=== PATIENT | female | born 1995 | race Caucasian/White ===

== ENCOUNTER → 2017-05-24 | Outpatient (CLI) | payer MEDICAID | LOC: FIMAGING 16:34 | PROVIDERS: ATTEND Advanced Practice Midwife | DX: R10.2 Pelvic and perineal pain (principal); N83.201 Unspecified ovarian cyst, right side ==

== ENCOUNTER 2017-07-11 22:38 | Emergency (ER) | payer MEDICAID ==
[2017-07-11 22:52] VITALS: TEMP 98.4; O2SAT 96
[2017-07-11 23:09] LABS: COLOR YELLOW; LEUKOCYTE ESTERASE,URINE TRACE (NEGATIVE); NITRITE,URINE NEGATIVE (NEGATIVE)
[2017-07-11 23:14] LABS: BACTERIA 1+ /hpf (NONE SEEN); MUCUS TRACE /lpf (NONE-1+)
--- NOTE | 2017-07-11 23:49 | EDPHY ---
H & P Stated Complaint: splinter in left great toe, uti symptoms- flank/back pain Time Seen by Provider: 07/11/17 22:59 HPI/ROS: CHIEF COMPLAINT: back pain, splinter in toe HISTORY OF PRESENT ILLNESS: 21 year old female presents to the ED complaining of a mild low back ache x 1 week. Pt Reports this started after a hard work out. She denies urinary urgency or dysuria. Pt reports she always has urinary frequency. No hematuria. No abdominal pain, fevers, nausea or vomiting. No vaginal discharge. No saddle anesthesias or loss of control of her bowel or bladder. Pt reports she was treated 1 month for a urinary tract infection. She states this feels similar to a kidney infection she had couple years ago. Patient is sexually active, she denies pain with intercourse. Pain is worse with movement. Patient also complains of a splinter in her left great toe that she sustained while walking down the stairs barefoot today at her apartment complex. Tetanus is up-to-date. REVIEW OF SYSTEMS: A comprehensive 10 point review of systems is otherwise negative aside from elements mentioned in the history of present illness. Physical Exam Source: Patient Exam Limitations: No limitations - Personal History LMP (Females 10-55): 15-21 Days Ago Current Tetanus Diphtheria and Acellular Pertussis (TDAP): Yes - Medical/Surgical History Hx Asthma: Yes Hx Chronic Respiratory Disease: No Hx Diabetes: No Hx Cardiac Disease: No Hx Renal Disease: No Hx Cirrhosis: No Hx Alcoholism: No Hx HIV/AIDS: No Hx Splenectomy or Spleen Trauma: No Other PMH: hypothyroid, - Social History Smoking Status: Never smoked - Physical Exam Exam: Physical Exam Gen: Alert and Oriented, NAD HEENT: PERRL, moist mucous membranes NECK: no meningismus CV: regular rate and regular rhythm PULM: CTAB, no wheezes ABDOMEN: soft, mild suprapubic tenderness to palpation, BS present BACK: Mild bilateral paraspinal lumbar tenderness to palpation, no CVA tenderness NEURO: Neurologically grossly intact EXTREMITIES: normal appearing SKIN: no rash or break in skin on exposed skin PSYCH: answers questions appropriately. Constitutional: Initial Vital Signs Temperature (C) 36.9 C 07/11/17 22:48 Heart Rate 61 07/11/17 22:48 Respiratory Rate 18 07/11/17 22:48 Blood Pressure 125/67 H 07/11/17 22:48 O2 Sat (%) 96 07/11/17 22:48 O2 Delivery Mode Room Air Allergies/Adverse Reactions: No Known Allergies Allergy (Verified 06/19/14 20:48) Home Medications: Medication Instructions Recorded Levothyroxine [Synthroid 75 mcg 06/19/14 (*)] Advair 250/50 (*) 07/11/17 Medical Decision Making Procedures: Procedure: Splinter removal left great toe. Toe cleaned with chlorhexidine, splinter removed with 18 gauge needed and splinter forceps without difficulty. Pt tolerated this well. ED Course/Re-evaluation: Splinter removed without difficulty. Urinalysis shows no evidence of infection , no blood. Patient has no CVA. She is nontoxic appearing, afebrile. I think her low back pain is muscular in nature as it started after a hard workout. I have recommended ibuprofen, heat, massage and rest. She agrees to follow up with her primary care doctor for symptoms that are not improving in the next few days patient is given strict return precautions for new symptoms, worsening symptoms or concerns. Differential Diagnosis: The differential diagnosis for the patient's back pain included but was not limited to musculo-skeletal pain, epidural abscess, herniated disk, spinal fracture, cauda equina and intra-abdominal causes including urinary system. - Data Points Laboratory Results: 07/11/17 07/11/17 22:55 22:55 Urine Color YELLOW Urine Appearance HAZY Urine pH 5.0 (5.0-7.5) Ur Specific [place] 1.020 (1.002-1.030) Urine Protein NEGATIVE (NEGATIVE) Urine Ketones NEGATIVE (NEGATIVE) Urine Blood NEGATIVE (NEGATIVE) Urine Nitrate NEGATIVE (NEGATIVE) Urine Bilirubin NEGATIVE (NEGATIVE) Urine Urobilinogen NEGATIVE EU EU (0.2-1.0) Ur Leukocyte Esterase TRACE H (NEGATIVE) Urine RBC 1-3 /hpf /hpf (0-3) Urine WBC 1-3 /hpf /hpf (0-3) Ur Epithelial Cells 2+ /lpf H /lpf (NONE-1+) Urine Bacteria 1+ /hpf H /hpf (NONE SEEN) Urine Mucus TRACE /lpf /lpf (NONE-1+) Urine Glucose NEGATIVE (NEGATIVE) Urine Test NEGATIVE Departure - Departure Disposition: Home, Routine, Self-Care Clinical Impression: Low back pain Qualifiers: Chronicity: acute Back pain laterality: bilateral Sciatica presence: without sciatica Qualified Code(s): M54.5 - Low back pain Splinter of toe of left foot Qualifiers: Encounter type: initial encounter Qualified Code(s): S90.455A - Superficial foreign body, left lesser toe(s), initial encounter Condition: Good Instructions: Soft Tissue Foreign Body (ED), Acute Low Back Pain (ED) Additional Instructions: Take 600mg of ibuprofen every 8 hours with food for 3-5 days. Heat, gentle range of motion, gentle massage, core strengthening exercises. Follow up with your primary care doctor in 2-3 days for symptoms that are not improving. Return to the ED for any worsening pain, fevers, vomiting, abdominal pain, loss of control of your bowel or bladder, numbness to your groin. Referrals: Carl Jones, [Primary Care Provider] - As per Instructions
[2017-07-11 23:57] VITALS: BP 102/66; PULSE 79; RESP 16
== END 2017-07-11 23:58 | disposition home or self-care (01) ==
PROC: 0JCR3ZZ Extirpation of Matter from Left Foot Subcutaneous Tissue and Fascia, Percutaneous Approach (ICD-10-PCS; principal; 2017-07-11)
DX: S90.452A Superficial foreign body, left great toe, initial encounter (principal); M54.5 Low back pain; J45.909 Unspecified asthma, uncomplicated; W45.8XXA Other foreign body or object entering through skin, initial encounter; Y92.039 Unspecified place in apartment as the place of occurrence of the external cause; Y99.8 Other external cause status; Y93.01 Activity, walking, marching and hiking

== ENCOUNTER → 2017-07-30 | Outpatient (CLI) | payer MEDICAID | LOC: FIMAGING 14:15 | PROVIDERS: ATTEND Nurse Practitioner Women's Health | DX: Z87.42 Personal history of other diseases of the female genital tract (principal); Z09 Encounter for follow-up examination after completed treatment for conditions other than malignant neoplasm ==

== ENCOUNTER 2018-04-09 09:14 | Emergency (ER) | payer MEDICAID ==
[2018-04-09] MEDS ORDERED: ONDANSETRON 4 MG/2 ML VIAL IVP ONE (09:35)
[2018-04-09] MEDS ORDERED: NS 1,000 ML IV ONE (09:35)
--- NOTE | 2018-04-09 09:51 | EDPHY ---
H & P Stated Complaint: ETOH LAST NIGHT/PASSED OUT ON TOILET AND HIT HEAD N/V TODAY Time Seen by Provider: 04/09/18 09:45 HPI/ROS: CHIEF COMPLAINT: Nausea vomiting, syncope HISTORY OF PRESENT ILLNESS: 22-year-old female arrives via private vehicle, had a friend drive her to the ER. Patient states that she was drinking alcohol last evening, approximately 5-6 drinks of alcohol, woke this morning feeling hung over, had a non thunderclap nonprogressive headache without nuchal rigidity , started experience vomiting, went to the bathroom was kneeling in front of the toilet, vomiting, then remembers waking up on the floor sometime later, possible syncopal episode. No trauma or head injury. Did not fall from a standing position. No complaints of pain or discomfort. Her primary complaint is nausea and subjective sensation volume depletion. No chest pain. No palpitations. PRIMARY CARE PROVIDER: REVIEW OF SYSTEMS: A ten point review of systems was performed and is negative with the exception of the items mentioned in the HPI PAST MEDICAL & SURGICAL HISTORY: No pertinent medical or surgical history SOCIAL HISTORY:Positive for alcohol use last evening PHYSICAL EXAM (Prior to examination, patient consented to physical exam, hands were washed and my usual and customary physical exam procedures followed) 1) GENERAL: Well-developed, well-nourished, alert and oriented. Appears nontoxic answering questions appropriately 2) HEAD: Normocephalic, atraumatic 3) HEENT: Pupils equal, round, reactive to light bilaterally. Sclera anicteric. Nasopharynx, oropharynx, clear, no lesions. Dry mucous membranes Ears bilaterally with normal tympanic membranes. 4) NECK: Full range of motion, no meningeal signs. 5) LUNGS: Clear auscultation bilaterally, no wheezes, no rhonchi, no retractions. 6) HEART: Regular rate and rhythm, no murmur, no heave, no gallop. 7) ABDOMEN: No guarding, no rebound, no focal tenderness, negative McBurney's, negative Lowery's, negative Rovsing's, negative peritoneal sign, unable to elicit any abdominal pain on exam. 8) MUSCULOSKELETAL: Moving all extremities, no focal areas of tenderness, no obvious trauma. No peripheral edema or discoloration. 9) BACK: No CVA tenderness, no midline vertebral tenderness, no fluctuance, no step-off, no obvious trauma, no visual or palpable abnormality. 10) SKIN: No rash, no petechiae. 11) Psychiatric: Patient is oriented X 3, there is no agitation. No tremor. DIFFERENTIAL DIAGNOSIS: In no particular include but limited to cardiac dysrhythmia, acute alcohol withdrawal, acute pancreatitis - Personal History LMP (Females 10-55): 8-14 Days Ago Current Tetanus Diphtheria and Acellular Pertussis (TDAP): Yes - Medical/Surgical History Hx Asthma: No Hx Chronic Respiratory Disease: No Hx Diabetes: No Hx Cardiac Disease: No Hx Renal Disease: No Hx Cirrhosis: No Hx Alcoholism: No Hx HIV/AIDS: No Hx Splenectomy or Spleen Trauma: No Other PMH: hypothyroid, - Social History Smoking Status: Never smoked Constitutional: Initial Vital Signs Temperature (C) 36.6 C 04/09/18 09:17 Heart Rate 82 04/09/18 09:17 Respiratory Rate 18 04/09/18 09:17 Blood Pressure 90/67 L 04/09/18 09:17 O2 Sat (%) 95 04/09/18 09:17 O2 Delivery Mode Room Air Allergies/Adverse Reactions: No Known Allergies Allergy (Verified 04/09/18 09:22) Home Medications: Medication Instructions Recorded Levothyroxine [Synthroid 75 mcg 06/19/14 (*)] Ondansetron Odt [Zofran Odt] 4 mg PO Q4PRN PRN #5 tab 04/09/18 Medical Decision Making ED Course/Re-evaluation: Re-evaluation with serial exams most recently at 11:54 a.m.: At this time the patient is drinking fluids, I re-examined her abdomen which is soft no guarding or rebound, unable to elicit any abdominal pain. She is tolerating oral intake. She is feeling improvement. She would like to be discharged home. Regarding her nausea vomiting, we discussed that this may be secondary to acute alcohol use. Doubt acute pancreatitis.. Regarding her syncopal episode while she was vomiting, she has a nonfocal exam, I do not think that CT imaging is indicated. Think this is more likely related to her multiple episodes of vomiting, retching in the presence of volume depletion and recent alcohol use. She feels comfortable being discharged. Usual and customary discharge precautions instructions provided. I saw this patient independently based on established practice protocols. Care of patient under supervision of secondary supervising physician Dr Angelo. - Data Points Laboratory Results: Laboratory Results 04/09/18 09:43 04/09/18 09:43 04/09/1818 04/09/18 09:43 09:43 09:43 WBC 13.79 10^3/uL H 10^3/uL (3.80-9.50) RBC 4.27 10^6/uL 10^6/uL (4.18-5.33) Hgb 13.7 g/dL g/dL (12.6-16.3) Hct 39.9 % % (38.0-47.0) MCV 93.4 fL fL (81.5-99.8) MCH 32.1 pg pg (27.9-34.1) MCHC 34.3 g/dL g/dL (32.4-36.7) RDW 13.2 % % (11.5-15.2) Plt Count 247 10^3/uL 10^3/uL (150-400) MPV 9.6 fL fL (8.7-11.7) Neut % (Auto) 80.1 % H % (39.3-74.2) Lymph % (Auto) 10.0 % L % (15.0-45.0) [place] % (Auto) 6.3 % % (4.5-13.0) Eos % (Auto) 2.6 % % (0.6-7.6) Baso % (Auto) 0.6 % % (0.3-1.7) Nucleat RBC Rel Count 0.0 % % (0.0-0.2) Absolute Neuts (auto) 11.05 10^3/uL H 10^3/uL (1.70-6.50) Absolute Lymphs (auto) 1.38 10^3/uL 10^3/uL (1.00-3.00) Absolute Monos (auto) 0.87 10^3/uL H 10^3/uL (0.30-0.80) Absolute Eos (auto) 0.36 10^3/uL 10^3/uL (0.03-0.40) Absolute Basos (auto) 0.08 10^3/uL 10^3/uL (0.02-0.10) Absolute Nucleated RBC 0.00 10^3/uL 10^3/uL (0-0.01) Immature Gran % 0.4 % % (0.0-1.1) Immature Gran # 0.05 10^3/uL 10^3/uL (0.00-0.10) Sodium 145 mEq/L mEq/L (135-145) Potassium 3.9 mEq/L mEq/L (3.3-5.0) Chloride 108 mEq/L mEq/L (97-110) Carbon Dioxide 21 mEq/l L mEq/l (22-31) Anion Gap 16 mEq/L mEq/L (8-16) BUN 16 mg/dL mg/dL (7-23) Creatinine 0.6 mg/dL mg/dL (0.6-1.0) Estimated GFR > 60 Glucose 101 mg/dL H mg/dL (70-100) Calcium 9.0 mg/dL mg/dL (8.5-10.4) Total Bilirubin 0.5 mg/dL mg/dL (0.1-1.4) Conjugated Bilirubin 0.4 mg/dL mg/dL (0.0-0.5) Unconjugated Bilirubin 0.1 mg/dL mg/dL (0.0-1.1) AST 22 IU/L IU/L (14-46) ALT 29 IU/L IU/L (9-52) Alkaline Phosphatase 60 IU/L IU/L (38-126) Total Protein 7.3 g/dL g/dL (6.3-8.2) Albumin 4.3 g/dL g/dL (3.5-5.0) Lipase 42 IU/L IU/L (23-300) Beta HCG, Qual NEGATIVE Medications Given: Discontinued Medications Sodium Chloride (Ns) 1,000 mls @ 0 mls/hr IV ONCE ONE; Wide Open PRN Reason: Protocol Stop: 04/09/18 09:36 Last Admin: 04/09/18 09:57 Dose: 1,000 mls Metoclopramide HCl (Reglan Injection) 10 mg IVP EDNOW ONE Stop: 04/09/18 10:52 Last Admin: 04/09/18 11:05 Dose: 10 mg Ondansetron HCl (Zofran) 4 mg IVP EDNOW ONE Stop: 04/09/18 09:36 Last Admin: 04/09/18 09:57 Dose: 4 mg Departure - Departure Disposition: Home, Routine, Self-Care Clinical Impression: Alcohol abuse, Volume depletion Condition: Good Instructions: Acute Nausea and Vomiting (ED), Abuse of Alcohol (ED) Additional Instructions: Seek immediate medical attention if you develop new or worsening symptoms, if you develop fevers, chills, inability to tolerate oral intake or any other symptoms that concerns you. Please exercise caution with alcohol use in the future. Referrals: Carl Jones, [Primary Care Provider] - As per Instructions Prescriptions: Ondansetron Odt [Zofran Odt] 4 mg PO Q4PRN PRN #5 tab PRN Reason: Nausea
--- NOTE | 2018-04-09 09:57 | CPEKG ---
Heart Rate: 71 RR Interval: 845 P-R Interval: 204 QRSD Interval: 110 QT Interval: 408 QTC Interval: 444 P [place]: 41 QRS [place]: 17 T Wave [place]: -14 EKG Severity - ABNORMAL ECG - EKG Impression: SINUS RHYTHM EKG Impression: NONSPECIFIC INTRAVENTRICULAR CONDUCTION DELAY Electronically Signed By: Ursula Angelo 09-Apr-2018 14:54:51
[2018-04-09 09:58] LABS: PLATELET COUNT 247 10^3/uL (150-400)
[2018-04-09] MEDS ORDERED: METOCLOPRAMIDE 10 MG/2 ML VIAL IVP ONE (10:51)
--- NOTE | 2018-04-09 11:32 | ASMTCAGE ---
CAGE Do you feel you ought to Answers: No cut down on your drinking or drug use? Do people annoy you by Answers: No criticizing your drinking or drug use? Do you feel guilty about Answers: No your drinking or drug use? Do you drink or use drugs Answers: No first thing in the morning ([employer])? Additional Comments Patient reports that she drinks once or twice per month. Admits to "blacking out" or fainting when drinks too much. I encouraged her to consider potential consequences she may put herself in when having black outs. Date Signed: 04/09/2018 11:31 AM Electronically Signed By:Angela Ahumada RN
[2018-04-09] MEDS ORDERED: ACETAMINOPHEN 325 MG TAB PO ONE (12:10)
[2018-04-09 12:16] VITALS: BP 106/67
== END 2018-04-09 12:15 | disposition home or self-care (01) ==
DX: E86.9 Volume depletion, unspecified (principal); F10.10 Alcohol abuse, uncomplicated
CPT/HCPCS: 96374; J2765

== ENCOUNTER 2018-04-23 13:13 | Emergency (ER) | payer MEDICAID ==
[2018-04-23 13:19] VITALS: BP 122/77
[2018-04-23] MEDS ORDERED: predniSONE 20 MG TAB PO ONE (13:37)
[2018-04-23] MEDS ORDERED: FAMOTIDINE 20 MG TAB PO ONE (13:37)
--- NOTE | 2018-04-23 13:37 | EDPHY ---
H & P Time Seen by Provider: 04/23/18 13:24 HPI/ROS: CHIEF COMPLAINT: Rash HISTORY OF PRESENT ILLNESS: The patient is a 20-year-old female who presents emergency department with 1 and half weeks of rash. The rash initially started around her neck. It was pruritic. It was intermittent. She then noticed a rash on her the flexor surface of her arms and her right fowler. This is slightly raised. It is also pruritic. She has had no fevers or chills. The patient states that couple weeks ago she was stung by a bug on her right leg. The location of sting has improved. She is taking supplements for allergies. REVIEW OF SYSTEMS: My complete review of systems is negative except as mentioned in the HPI. Past Medical/Surgical History: Hypothyroidism Smoking Status: Never smoked Physical Exam: Vitals noted GENERAL: Well-appearing, in no acute distress, alert. HEENT: Eyes normal to inspection, normal pharynx, no signs of dehydration. NECK: No thyromegaly, no lymphadenopathy, supple. RESPIRATORY: Clear to auscultation bilaterally, no rales, rhonchi or wheezing. CVS: Regular rate and rhythm, no rubs, murmurs, or gallops. ABDOMEN: Soft, nontender, nondistended, no organomegaly. BACK: Normal to inspection, no CVA tenderness. SKIN: The patient has a raised erythematous rash around her neck. They are small papules. No ulcerations. No target lesions. Patient also has a small area of raised skin over her right lateral fowler. This is nontender to touch. No petechiae. No signs cellulitis. Warm, dry. No pallor. EXTREMITIES: No pedal edema, no calf tenderness, no Homans sign or cords, no joint swelling. NEURO/PSYCH: Alert and oriented, normal mood and affect, normal motor sensory exam. Constitutional: Initial Vital Signs Temperature (C) 36.4 C 04/23/18 13:15 Heart Rate 72 04/23/18 13:15 Respiratory Rate 16 04/23/18 13:15 Blood Pressure 122/77 H 04/23/18 13:15 O2 Sat (%) 95 04/23/18 13:15 O2 Delivery Mode Room Air Allergies/Adverse Reactions: No Known Allergies Allergy (Verified 04/23/18 13:15) Home Medications: Medication Instructions Recorded Levothyroxine [Synthroid 75 mcg 06/19/14 (*)] Famotidine [Pepcid 20 MG (*)] 20 mg PO BID #10 tab 04/23/18 predniSONE 20 mg PO DAILY 4 Days tab 04/23/18 Medical Decision Making ED Course/Re-evaluation: In the emergency department I discussed possible etiologies with the patient. I answered all her questions. Patient was given prednisone 60 mg orally. She will be given a prescription of prednisone and Pepcid. She has an appointment with the primary care physician on Wednesday. She will return with worsening symptoms. She was given warnings prior to leaving. Differential Diagnosis: My differential includes but is not limited to staph scalded skin, [place]- [place] syndrome, TEN, , allergic dermatitis, insect sting, anaphylaxis Departure - Departure Disposition: Home, Routine, Self-Care Clinical Impression: Rash Condition: Good Instructions: Acute Rash (ED) Additional Instructions: Take your entire course of prednisone. Return with increasing rash, shortness of breath, swelling in your throat or mouth, fever or any other concerns. Referrals: Carl Jones, [Primary Care Provider] - 04/25/18 Prescriptions: Famotidine [Pepcid 20 MG (*)] 20 mg PO BID #10 tab predniSONE 20 mg PO DAILY 4 Days tab
== END 2018-04-23 13:54 | disposition home or self-care (01) ==
DX: R21 Rash and other nonspecific skin eruption (principal)
CPT/HCPCS: J7512